=== PATIENT | male | born 1970 | race Caucasian/White ===

== ENCOUNTER 2018-11-02 22:01 | Inpatient (IN) | payer MEDICARE, MEDICAID ==
[~2018-11-02] VITALS: Ht 177.8 cm; Wt 75.0 kg
[~2018-11-02 22:01] MED LIST: BUPR-93 PO; LURA40 PO; NOCURR
[2018-11-02 23:26] LABS: BASOPHILS % (AUTO) 0.7 % (0.0-2.0); EOSINOPHILS % (AUTO) 0.6 % (1.0-6.0); HEMATOCRIT 43.5 % (41-53); HEMOGLOBIN 14.3 g/dL (13.5-17.5); LYMPHOCYTES # (AUTO) 1.4 K/uL (1.0-4.8); LYMPHOCYTES % (AUTO) 13.4 % (22.0-44.0); MEAN CORPUSCULAR HEMOGLOBIN 29.1 pg (26.0-34.0); MEAN CORPUSCULAR HGB CONC 32.8 G/dL (31.0-37.0); MEAN CORPUSCULAR VOLUME 89 fL (80-100); MONOCYTES % (AUTO) 10.2 % (2.0-9.0); NEUTROPHILS # (AUTO) 7.7 K/uL (1.8-7.7); NEUTROPHILS % (AUTO) 75.1 % (40.0-70.0); PLATELET COUNT (AUTO) 410 K/uL (150-450); RED BLOOD CELL COUNT(AUTO) 4.91 MIL/uL (4.50-5.90); RED CELL DISTRIBUTION WIDTH 14.8 % (11.5-14.5)
[2018-11-02 23:37] LABS: ANION GAP 12 mmol/L (8-16); CALCIUM, TOTAL 10.3 mg/dL (8.8-10.5); CARBON DIOXIDE 24 mmol/L (22-29); CHLORIDE 103 mmol/L (98-107); GLOMERULAR FILTR. RATE CALC > 60 mL/min (>60); GLUCOSE,RANDOM 110 mg/dL (70-110); POTASSIUM 3.8 mmol/L (3.5-5.1); SODIUM SERUM 139 mmol/L (136-145); UREA NITROGEN, BLOOD 21 mg/dL (7-18)
[2018-11-02 23:42] LABS: ALANINE AMINOTRANSFERASE 22 U/L (12-78); ALBUMIN 4.3 g/dL (3.4-5.0); ALKALINE PHOSPHATASE 74 U/L (46-116); ASPARTATE AMINOTRANSFERASE 20 U/L (15-37); BILIRUBIN,TOTAL 0.4 mg/dL (0.1-1.0)
[2018-11-03 01:11] LABS: AMPHET/METH SCREEN,URINE POSITIVE (NEGATIVE); BARBITURATE SCREEN, URINE NEGATIVE (NEGATIVE); BENZODIAZEPINES SCREEN,URINE NEGATIVE (NEGATIVE); CANNABINOID SCREEN,URINE POSITIVE (NEGATIVE); COCAINE SCREEN,URINE NEGATIVE (NEGATIVE); METHADONE SCREEN, URINE NEGATIVE (NEGATIVE); OPIATE SCREEN,URINE NEGATIVE (NEGATIVE); PHENCYCLIDINE SCREEN,URINE NEGATIVE (NEGATIVE)
[2018-11-03] MEDS ORDERED: DiphenhydrAMINE HCL 50 MG/ML VIAL ONE (02:34)
[2018-11-03] MEDS ORDERED: LORazepam 2 MG/ML VIAL ONE (02:34)
[2018-11-03] MEDS ORDERED: HALOPERIDOL LACTATE 5 MG/ML VIAL ONE (02:34)
[2018-11-03] MEDS ORDERED: DiphenhydrAMINE HCL 50 MG/ML VIAL IM ONE (02:45)
[2018-11-03] MEDS ORDERED: HALOPERIDOL LACTATE 5 MG/ML VIAL IM ONE (02:45)
[2018-11-03] MEDS ORDERED: LORazepam 2 MG/ML VIAL IM ONE (02:45)
[2018-11-03] MEDS ORDERED: HALOPERIDOL 5 MG TABLET PO PRN (04:45)
[2018-11-03] MEDS ORDERED: ZOLPIDEM TARTRATE 10 MG TABLET PO PRN (04:45)
[2018-11-03 06:17] LABS: APPEARANCE,URINE TURBID (CLEAR); GLUCOSE, URINE (UA) NEGATIVE (NEGATIVE); KETONES,URINE 40 mg/dL (NEGATIVE); LEUKOCYTE ESTERASE ,URINE NEGATIVE (NEGATIVE); NITRATE,URINE NEGATIVE (NEGATIVE); OCCULT BLOOD,URINE SMALL (NEGATIVE); PH,URINE 5.5 (5.0-8.0); PROTEIN,URINE POS 1+ (NEGATIVE)
[2018-11-03 06:19] LABS: BILIRUBIN,URINE PRELIM. POSITIVE (NEGATIVE)
[2018-11-03 06:26] LABS: BACTERIA,URINE Rare /HPF (None Seen); SQUAMOUS EPITHELIAL CELL,UR Rare /LPF (None Seen); WBC,URINE 0-2 /HPF (0-5)
[2018-11-03 06:27] LABS: CALCIUM OXALATE CRYSTALS,UR Few /LPF (None Seen)
[2018-11-03] MEDS ORDERED: QUEtiapine FUMARATE 200 MG TABLET PO SCH (21:00)
[2018-11-03] MEDS ORDERED: KETOROLAC TROMETHAMINE 30 MG/ML VIAL IVP ONE (22:00)
[2018-11-03] MEDS ORDERED: KETOROLAC TROMETHAMINE 30 MG/ML VIAL IM ONE (22:15)
[2018-11-04 08:55] VITALS: BP 107/53
[2018-11-04] MEDS: NICOTINE 21 MG/24 HOUR PATCH TD SCH (09:15)
[2018-11-04] MEDS ORDERED: ACETAMINOPHEN 325 MG TABLET PO PRN (14:15)
[2018-11-04] MEDS: IBUPROFEN 600 MG TABLET PO PRN (14:24)
[2018-11-04 16:23] VITALS: BP 134/60
[2018-11-04] MEDS: LURASIDONE HCL 40 MG TABLET PO SCH (16:34)
[2018-11-05] MEDS: LURASIDONE HCL 40 MG TABLET PO SCH (06:46)
[2018-11-05 07:02] VITALS: BP 130/62
[2018-11-05 08:01] LABS: CHOL/HDL RATIO 3.2 (4.2-7.3); FREE T4 (FREE THYROXINE) 0.93 ng/dL (0.76-1.46); THYROID STIMULATING HORMONE 3.76 uIU/mL (0.36-3.74)
[2018-11-05] MEDS: NICOTINE 21 MG/24 HOUR PATCH TD SCH (08:18)
[2018-11-05 09:27] VITALS: BP 105/67
[2018-11-05 09:53] VITALS: BP 121/72
[2018-11-05] MEDS: IBUPROFEN 600 MG TABLET PO PRN (09:53)
[2018-11-05 16:47] VITALS: BP 120/33
[2018-11-06] MEDS: LORazepam 2 MG TABLET PO PRN ×4 (00:29→20:40)
[2018-11-06 00:36] VITALS: BP 118/83
[2018-11-06] MEDS: LURASIDONE HCL 40 MG TABLET PO SCH (07:02)
[2018-11-06 08:05] VITALS: BP 107/70
[2018-11-06] MEDS: NICOTINE 21 MG/24 HOUR PATCH TD SCH (08:32)
[2018-11-06 16:09] VITALS: BP 122/80
[2018-11-06] MEDS ORDERED: MAGNESIUM HYDROXIDE SUSPENSION 30 ML UDCUP PO PRN (20:45)
[2018-11-07 06:40] VITALS: BP 103/71
[2018-11-07] MEDS: LURASIDONE HCL 40 MG TABLET PO SCH (06:42)
[2018-11-07] MEDS: NICOTINE 21 MG/24 HOUR PATCH TD SCH (08:20)
[2018-11-07] MEDS: LORazepam 2 MG TABLET PO PRN (11:10)
[2018-11-07] MEDS ORDERED: LURA40 PO (15:45)
[2018-11-07 16:00] VITALS: BP 113/75
== END 2018-11-07 20:15 | disposition home or self-care (01) | DRG 885 ==
LOC: EMS 22:02 → B3A 11-04 07:44
DX: F25.0 Schizoaffective disorder, bipolar type (principal); F15.10 Other stimulant abuse, uncomplicated; F12.10 Cannabis abuse, uncomplicated; Z91.013 Allergy to seafood
CPT/HCPCS: 84436; 84439; 84443; 99291; G0480; J1200; J1630; J1885; J2060